=== PATIENT | female | born 1990 | race Caucasian/White ===

== ENCOUNTER → 2016-10-21 | Outpatient (CLI) | payer BC, OTHER | LOC: FIMAGING 09:33 | PROVIDERS: ATTEND Naturopath | DX: E28.2 Polycystic ovarian syndrome (principal) ==

== ENCOUNTER → 2016-12-13 | Outpatient (CLI) | payer BC | LOC: BMCIMAGING 18:49 | PROVIDERS: ATTEND Emergency Medicine | DX: S59.902A Unspecified injury of left elbow, initial encounter (principal); Y93.55 Activity, bike riding; V18.0XXA Pedal cycle driver injured in noncollision transport accident in nontraffic accident, initial encounter ==